=== PATIENT | female | born 1960 | race Caucasian/White ===

== ENCOUNTER → 2018-04-23 15:52 | Outpatient (CLI) | payer OTHER, SELFPAY ==
[2018-04-23 17:34] LABS: Thyroid Stimulating Hormone 0.64 uIU/mL (0.47-4.68)
== END ==
PROVIDERS: Family Provider Obstetrics & Gynecology; Visit Provider Obstetrics & Gynecology
DX: E03.9 Hypothyroidism, unspecified (principal)
CPT/HCPCS: 36415; 84439; 84443

== ENCOUNTER → 2019-07-15 10:50 | Outpatient (CLI) | payer OTHER, SELFPAY ==
--- NOTE | 2019-07-15 10:53 | DI.MRI.S_ITS ---
BREAST MRI OF BOTH BREASTS: 07/15/2019 CLINICAL: Inconclusive mammogram. PROCEDURE: MR BREAST BI WO/W CON INDICATIONS: Eval dense breast tissue and breast asymmetry. Per chart review, an asymmetry in the right breast posterior depth superior region was seen on the mediolateral oblique view only of comparison screening mammogram of 01/27/18. This has reportedly remains stable according to the comparison bilateral diagnostic mammogram and targeted right breast ultrasound performed on 01/28/19. A followup mammogram and ultrasound in 12 months is recommended to document continued stability. TECHNIQUE: The patient was placed prone in a dedicated breast imaging coil. Precontrast axial STIR and 3D FLASH without fat saturation sequences were obtained. Both before and after bolus injection of contrast, sequential 1-minute axial 3D FLASH with fat saturation sequences for 3 time points, with subtraction images and maximum intensity projections (MIP's) generated. Delayed sagittal FLASH images with fat saturation were also obtained. 20 cc of ProHance intravenous contrast was utilized for this exam. Computer-aided detection, including computer algorithm analysis of MRI image data for lesion detection and characterization, pharmacokinetic analysis, with further physician review for interpretation, was performed. COMPARISON: [facility], US, US BREAST LIMITED RIGHT, 01/28/2019, 8:40. [facility], MG, MG DIAGNOSTIC BILATERAL, 01/28/2019, 8:21. [facility], MG, MG DIAGNOSTIC UNILATERAL RIGHT, 08/06/2018, 10:41. [facility], US, US BREAST LIMITED RIGHT, 08/06/2018, 10:26. [facility], US, US BREAST LIMITED RIGHT, 02/09/2018, 11:39. [facility], MG, MG ADDITIONAL VWS RIGHT, 02/09/2018, 11:15. [facility], MG, MG SCREENING BILATERAL, 01/27/2018, 7:53. FINDINGS: Image quality: There is aliasing/wraparound artifact which partially obscures the axillary regions bilaterally on multiple sequences, resulting in suboptimal evaluation of these regions. There is mild background parenchymal enhancement. Right breast: There is susceptibility artifact consistent with a biopsy clip in the superior lateral right breast middle depth (axial image 91 of series 6), correlating with findings seen on comparison mammography. There is no suspicious mass or non-mass enhancement adjacent this biopsy clip. There is no suspicious mass or non-mass enhancement in the imaged right breast. There is no MRI correlate for the asymmetry seen in the right breast posterior depth superior region on comparison mammography. Left breast: There is a 2.0 cm anteroposterior by 1.0 cm craniocaudal by 0.7 cm transverse area of heterogeneous non-mass enhancement within the superior lateral left breast at posterior depth (series 8 image 80) on initial postcontrast sequences, demonstrating mixed persistent and washout contrast enhancement kinetics. This 2.0 cm area of non-mass enhancement subsequently becomes part of a 5.0 cm area of non-mass enhancement demonstrating persistent contrast-enhancement kinetics on delayed postcontrast sequences. This correlates with an area of dense fibroglandular tissue on comparison mammography. Miscellaneous: No axillary or internal mammary lymphadenopathy. Susceptibility artifact consistent with surgical clips are identified within the left axilla. IMPRESSION: INCOMPLETE: NEEDS ADDITIONAL IMAGING EVALUATION 1. No suspicious MRI correlate for the asymmetry in the right breast posterior depth superior region seen on comparison mammography of 01/27/18 and 01/28/19. Recommend follow mammogram and possible targeted ultrasound in January 2020 to demonstrate 2 year stability. 2. 2.0 cm area of non-mass enhancement within the superior lateral left breast corresponding to dense fibroglandular tissue on comparison mammography. This likely represents prominent background parenchymal enhancement with a target second look ultrasound of the superior lateral left breast is recommended to exclude an underlying/obscured mass. 3. No axillary or internal mammary lymphadenopathy. BIRADS: Right breast: BI-RADS 3. Probably benign. A follow mammogram possible targeted ultrasound in January 2020 is recommended. Left breast: BI-RADS 0. Needs additional evaluation. Recommend targeted ultrasound of the superior lateral left breast to exclude an underlying mass. COMMENT: The imaging literature indicates that a negative contrast breast MRI examination has a high sensitivity and a moderate specificity for detecting and excluding invasive carcinomas to a detection threshold of 3-5 mm; nonetheless, appropriate clinical and mammographic follow-up are recommended. MRI is not sensitive for detecting DCIS (ductal carcinoma in situ) and may not detect large invasive neoplasms that show only minimal enhancement such as mucinous carcinoma. If there are suspicious calcifications or clinically worrisome palpable masses, then biopsy should still be considered. Invasive neoplasms can be hidden by co-existent and benign enhancement caused by mastitis, hormone therapy effects, radiation therapy, , and recent biopsy or surgery. False positive examinations can occur in a number of circumstances, including breasts that have recently been subject to invasive procedures and those that contain atypical ductal hyperplasia, hormonally stimulated glandular tissue, fat necrosis, or radial scars. This exam was interpreted at Station ID: [id number]. Electronically Signed By: Wilmer Davis M.D. ecl/:07/16/2019 16:34:41 letter sent: Need Ultrasound ACR BI-RADS Category 0: Incomplete [id number]
== END ==
PROVIDERS: Family Provider Obstetrics & Gynecology; PCP Obstetrics & Gynecology; Visit Provider Obstetrics & Gynecology
DX: R92.2 Inconclusive mammogram (principal); N64.89 Other specified disorders of breast; Z80.3 Family history of malignant neoplasm of breast
CPT/HCPCS: 77049; A9579

== ENCOUNTER → 2020-04-10 15:39 | Outpatient (CLI) | payer OTHER, SELFPAY ==
--- NOTE | 2020-04-10 | DI.MRI.S_ITS ---
BREAST MRI OF BOTH BREASTS: 04/10/2020 CLINICAL: Inconclussive findings on diagnostic imaging of breasts. Comparison is made to exams dated: 02/03/2020 mammogram - [facility], 07/15/2019 breast MRI - [facility], 01/28/2019 mammogram, 02/03/2020 ultrasound, 02/03/2020 ultrasound, and 09/30/2019 ultrasound - [facility]. TECHNIQUE: The patient was placed prone in a dedicated breast imaging coil. Precontrast axial STIR and 3D FLASH without fat saturation sequences were obtained. Both before and after bolus injection of contrast, sequential 1-minute axial 3D FLASH with fat saturation sequences for 3 time points, with subtraction images and maximum intensity projections (MIP's) generated. Delayed sagittal FLASH images with fat saturation were also obtained. Computer-aided detection, including computer algorithm analysis of MRI image data for lesion detection and characterization, pharmacokinetic analysis, with further physician review for interpretation, was performed. FINDINGS: Image quality: Excellent. There is mild background parenchymal enhancement. Right breast: Susceptibility artifact is again noted in the upper outer quadrant of the right breast related to a biopsy clip as previously seen. No suspicious mass or abnormal non mass enhancement is identified in the right breast. Right axillary lymph nodes appear unchanged when compared to the prior MRI from 07/15/2019. Left breast: The previously seen area of non-mass enhancement in the superior lateral quadrant of the left breast posterior depth does not appear significantly changed when compared to the prior MRI from 07/15/2019. This area demonstrates persistent enhancement on kinetic curve assessment. No new mass or new area of non-mass enhancement is identified in the left breast. No significant enlarged left axillary lymph nodes are identified. Miscellaneous: The included portions of the anterior chest wall and upper abdomen demonstrate no acute abnormality. IMPRESSION: PROBABLY BENIGN 1. Stable area of non-mass enhancement in the upper outer quadrant of the left breast posterior depth when compared to the MRI from 07/15/2019, without sonographic or mammographic correlate. Findings again most likely represent normal fibroglandular breast tissue with prominent background parenchymal enhancement. Recommend repeat MRI in 12 months to document long-term stability. 2. Right axillary lymph nodes appear unchanged when compared to the prior MRI from 07/15/2019, and are considered benign. No new area of eccentric cortical thickening is seen. 3. No suspicious MRI correlate is seen for the previously described asymmetry in the right breast superior region at the posterior depth with stable mammographic appearance, which is considered benign given stability over time. BIRADS 3: Probably benign findings. Recommend follow-up MRI in 12 months to demonstrate long-term stability of the non mass enhancement in the left breast. Bilateral annual screening mammograms are recommended, due in 01/2021. COMMENT: The imaging literature indicates that a negative contrast breast MRI examination has a high sensitivity and a moderate specificity for detecting and excluding invasive carcinomas to a detection threshold of 3-5 mm; nonetheless, appropriate clinical and mammographic follow-up are recommended. MRI is not sensitive for detecting DCIS (ductal carcinoma in situ) and may not detect large invasive neoplasms that show only minimal enhancement such as mucinous carcinoma. If there are suspicious calcifications or clinically worrisome palpable masses, then biopsy should still be considered. Invasive neoplasms can be hidden by co-existent and benign enhancement caused by mastitis, hormone therapy effects, radiation therapy, , and recent biopsy or surgery. False positive examinations can occur in a number of circumstances, including breasts that have recently been subject to invasive procedures and those that contain atypical ductal hyperplasia, hormonally stimulated glandular tissue, fat necrosis, or radial scars. A follow-up breast MRI in 12 months is recommended. This exam was interpreted at Station ID: [id number]. Electronically Signed By: Cristobal June M.D. ar/:04/11/2020 09:56:34 letter sent: Followup Recommended ACR BI-RADS Category 3: Probably benign [id number]
== END ==
PROVIDERS: Family Provider Obstetrics & Gynecology; PCP Obstetrics & Gynecology; Referring Provider Specialist; Visit Provider Specialist
DX: R92.8 Other abnormal and inconclusive findings on diagnostic imaging of breast (principal); N64.89 Other specified disorders of breast
CPT/HCPCS: 77049; A9579

== ENCOUNTER → 2021-12-13 08:30 | Outpatient (CLI) | payer OTHER, SELFPAY ==
--- NOTE | 2021-12-13 08:30 | DI.MRI.S_ITS ---
BREAST MRI OF BOTH BREASTS: 12/13/2021 CLINICAL: Bilat MRI. Comparison made to prior MRI, mammogram, and ultrasound studies. TECHNIQUE: The patient was placed prone in a dedicated breast imaging coil. Precontrast axial STIR and 3D FLASH without fat saturation sequences were obtained. Both before and after bolus injection of contrast, sequential 1-minute axial 3D FLASH with fat saturation sequences for 3 time points, with subtraction images and maximum intensity projections (MIP's) generated. Delayed sagittal FLASH images with fat saturation were also obtained. Computer-aided detection, including computer algorithm analysis of MRI image data for lesion detection and characterization, pharmacokinetic analysis, with further physician review for interpretation, was performed. FINDINGS: Image quality: Excellent. There is mild background parenchymal enhancement. Right breast: Susceptibility artifact is again noted in the upper outer quadrant of the right breast related to a biopsy clip as previously seen. No suspicious mass or abnormal non mass enhancement is identified in the right breast. No threshold enlarged suspicious lymph node. Left breast: The previously seen area of non-mass enhancement in the superior lateral quadrant of the left breast posterior depth does not appear significantly changed when compared to the prior MRI studies. This area demonstrates persistent enhancement on kinetic curve assessment. No new mass or new area of non-mass enhancement is identified in the left breast. No significant enlarged left axillary lymph nodes are identified. Miscellaneous: The included portions of the anterior chest wall and upper abdomen demonstrate no acute abnormality. IMPRESSION: PROBABLY BENIGN 1. Stable area of non-mass enhancement in the upper outer quadrant of the left breast posterior depth when compared to the MRI studies performed June and March of 2020. This finding has no sonographic or mammographic correlate. Findings are considered statistically benign and are consistent with regionally increased background parenchymal enhancement. COMMENT: The imaging literature indicates that a negative contrast breast MRI examination has a high sensitivity and a moderate specificity for detecting and excluding invasive carcinomas to a detection threshold of 3-5 mm; nonetheless, appropriate clinical and mammographic follow-up are recommended. MRI is not sensitive for detecting DCIS (ductal carcinoma in situ) and may not detect large invasive neoplasms that show only minimal enhancement such as mucinous carcinoma. If there are suspicious calcifications or clinically worrisome palpable masses, then biopsy should still be considered. Invasive neoplasms can be hidden by co-existent and benign enhancement caused by mastitis, hormone therapy effects, radiation therapy, , and recent biopsy or surgery. False positive examinations can occur in a number of circumstances, including breasts that have recently been subject to invasive procedures and those that contain atypical ductal hyperplasia, hormonally stimulated glandular tissue, fat necrosis, or radial scars. A follow-up breast MRI in 12 months is recommended. This exam was interpreted at Station ID: [id number]. Electronically Signed By: Reinier Talamantes M.D. jr/:12/13/2021 14:02:50 copy to: SEBASTIAN LION letter sent: Normal Exam ACR BI-RADS Category 3: Probably benign [id number]
== END ==
PROVIDERS: Family Provider Obstetrics & Gynecology; PCP Family Medicine; Referring Provider Obstetrics & Gynecology; Visit Provider Obstetrics & Gynecology
DX: R92.2 Inconclusive mammogram (principal); N64.89 Other specified disorders of breast; Z80.3 Family history of malignant neoplasm of breast
CPT/HCPCS: 77049; A9579

== ENCOUNTER → 2023-10-23 09:10 | Outpatient (CLI) | payer OTHER, SELFPAY | PROVIDERS: Family Provider Obstetrics & Gynecology; Visit Provider Obstetrics & Gynecology | DX: N94.9 Unspecified condition associated with female genital organs and menstrual cycle (principal); R30.0 Dysuria; E03.9 Hypothyroidism, unspecified | CPT/HCPCS: 87086 ==

== ENCOUNTER → 2023-10-23 09:32 | Outpatient (CLI) | payer OTHER, SELFPAY ==
[2023-10-23 15:58] LABS: Free T4, Direct Thyroxine 1.52 ng/dL (0.78-2.19)
[2023-10-23 16:12] LABS: Thyroid Stimulating Hormone 1.17 uIU/mL (0.47-4.68)
== END ==
PROVIDERS: Family Provider Obstetrics & Gynecology; Referring Provider Obstetrics & Gynecology; Visit Provider Obstetrics & Gynecology
DX: N94.9 Unspecified condition associated with female genital organs and menstrual cycle (principal); N89.8 Other specified noninflammatory disorders of vagina; E03.9 Hypothyroidism, unspecified
CPT/HCPCS: 36415; 84439; 84443; 87480; 87510; 87660